=== PATIENT | female | born 1995 | race Caucasian/White ===

== ENCOUNTER → 2023-04-15 | Outpatient (CLI) | payer BC | LOC: M PAIN 13:00 | PROVIDERS: ATTEND Nurse Practitioner Family | DX: M79.2 Neuralgia and neuritis, unspecified (principal); M25.552 Pain in left hip; M25.562 Pain in left knee; G89.29 Other chronic pain; G43.909 Migraine, unspecified, not intractable, without status migrainosus; Z79.1 Long term (current) use of non-steroidal anti-inflammatories (NSAID); Z79.899 Other long term (current) drug therapy ==

== ENCOUNTER → 2023-04-20 | Outpatient (CLI) | payer BC | LOC: M PAIN 17:30 | PROVIDERS: ATTEND Nurse Practitioner Family | DX: M79.2 Neuralgia and neuritis, unspecified (principal); M25.552 Pain in left hip; M25.562 Pain in left knee; G89.29 Other chronic pain; G90.522 Complex regional pain syndrome I of left lower limb; G43.909 Migraine, unspecified, not intractable, without status migrainosus; Z79.1 Long term (current) use of non-steroidal anti-inflammatories (NSAID); Z79.899 Other long term (current) drug therapy ==

== ENCOUNTER → 2023-06-23 | Outpatient (CLI) | payer BC | LOC: M PAIN 17:00 | PROVIDERS: ATTEND Anesthesiology | DX: M25.562 Pain in left knee (principal); M79.2 Neuralgia and neuritis, unspecified; Z79.1 Long term (current) use of non-steroidal anti-inflammatories (NSAID); Z79.899 Other long term (current) drug therapy ==

== ENCOUNTER → 2023-07-21 | Outpatient (CLI) | payer BC | LOC: M PAIN 17:00 | PROVIDERS: ATTEND Anesthesiology | DX: M25.562 Pain in left knee (principal); Z79.891 Long term (current) use of opiate analgesic; M79.2 Neuralgia and neuritis, unspecified; G43.909 Migraine, unspecified, not intractable, without status migrainosus; Z79.1 Long term (current) use of non-steroidal anti-inflammatories (NSAID); Z79.899 Other long term (current) drug therapy ==

== ENCOUNTER → 2023-09-01 | Outpatient (CLI) | payer BC | LOC: M PAIN 09:30 | PROVIDERS: ATTEND Anesthesiology | DX: M25.562 Pain in left knee (principal); M79.2 Neuralgia and neuritis, unspecified; M79.605 Pain in left leg; G43.909 Migraine, unspecified, not intractable, without status migrainosus; Z79.1 Long term (current) use of non-steroidal anti-inflammatories (NSAID); Z79.899 Other long term (current) drug therapy ==

== ENCOUNTER → 2023-09-29 | Outpatient (CLI) | payer BC | LOC: M PAIN 16:30 | PROVIDERS: ATTEND Anesthesiology | DX: M25.562 Pain in left knee (principal); M79.2 Neuralgia and neuritis, unspecified; G43.909 Migraine, unspecified, not intractable, without status migrainosus; Z87.442 Personal history of urinary calculi; Z79.1 Long term (current) use of non-steroidal anti-inflammatories (NSAID); Z79.891 Long term (current) use of opiate analgesic; Z79.899 Other long term (current) drug therapy ==

== ENCOUNTER → 2024-09-09 | Outpatient (CLI) | payer OTHER | LOC: M RAD 14:16 | PROVIDERS: ATTEND Student in an Organized Health Care Education/Training Program | DX: S92.351A Displaced fracture of fifth metatarsal bone, right foot, initial encounter for closed fracture (principal); X58.XXXA Exposure to other specified factors, initial encounter; Y92.9 Unspecified place or not applicable; Y93.9 Activity, unspecified; Y99.9 Unspecified external cause status ==

== ENCOUNTER → 2024-11-01 | Outpatient (CLI) | payer BC | LOC: M RAD 08:43 | DX: R10.811 Right upper quadrant abdominal tenderness (principal); K82.8 Other specified diseases of gallbladder | CPT/HCPCS: 78227; A9537 ==